=== PATIENT | male | born 1970 | race Two or more races ===

== ENCOUNTER 2025-01-14 05:42 | Day surgery (SDC) | payer OTHER ==
[2025-01-08 10:23] VITALS: BP 149/84
[~2025-01-14] VITALS: Ht 167.6 cm; Wt 79.4 kg
[2025-01-14] MEDS ORDERED: ENOXAPARIN SODIUM 40 MG/0.4 ML SYRINGE SUBCUTANEO ONE (08:30)
[2025-01-14] MEDS ORDERED: BUPIVACAINE HCL 30 ML VIAL IJ ONE (08:30)
[2025-01-14] MEDS ORDERED: CEFTRIAXONE SODIUM 2,000 MG VIAL IV ONE (08:30)
[2025-01-14] MEDS ORDERED: METRONIDAZOLE/SODIUM CHLORIDE 500 MG/100 ML PIGGYBACK IV ONE (08:30)
[2025-01-14] MEDS ORDERED: SUGAMMADEX SODIUM 200 MG/2 ML VIAL IV ONE (09:15)
[2025-01-14] MEDS ORDERED: CELEBREX200MG PO (09:28)
[2025-01-14] MEDS ORDERED: TRAM1TAB98 PO (09:28)
[2025-01-14] MEDS ORDERED: NEURONTIN300 MG PO (09:28)
[2025-01-14] MEDS ORDERED: POLY119PG PO (09:28)
== END 2025-01-14 11:44 | disposition home or self-care (01) ==
LOC: CIR.AMB 05:42
PROVIDERS: ATTEND Surgery
DX: K40.90 Unilateral inguinal hernia, without obstruction or gangrene, not specified as recurrent (principal)
CPT/HCPCS: 49650; C1781